=== PATIENT | male | born 1980 | race Two or more races ===

== ENCOUNTER 2021-09-09 04:15 | Emergency (ER) | payer MEDICAID, OTHER ==
[~2021-09-09] VITALS: Ht 177.8 cm; Wt 99.8 kg
[2021-09-09 04:16] VITALS: BP 136/93
[2021-09-09] MEDS ORDERED: ACETAMINOPHEN 325 MG TAB PO ONE (04:30)
== END 2021-09-09 05:46 | disposition left against medical advice (07) ==
LOC: ER 04:15
DX: R51.9 Headache, unspecified (principal); Z53.21 Procedure and treatment not carried out due to patient leaving prior to being seen by health care provider